=== PATIENT | male | born 1955 | race Hispanic/Latino ===

== ENCOUNTER 2023-05-26 12:49 | Inpatient (IN) | payer OTHER, MEDICARE ==
[2023-05-26] VITALS (46 sets, daily range): BP systolic 115–128; BP diastolic 44–54; PULSE 88–93; RESP 22–27; O2SAT 97–99
[~2023-05-26] VITALS: Ht 182.9 cm; Wt 95.7 kg
[2023-05-26 13:57] LABS: ABG BASE EXCESS -11.6 mmol/L (-2.0-3.0); ABG HCO3 15.5 mmol/L (21.0-28.0); ABG OXYGEN SATURATION 98.2 % (95.0-99.0); ABG PCO2 39 mmHg (35-48); ABG PH 7.214 (7.35-7.450); CARBON MONOXIDE 0.6; HHb 1.8; PO2, ARTERIAL BG 118.9 mmHg (83.0-108.0); VENT MODE, BG AC-VC (ROOM AIR)
[2023-05-26] MEDS: ARTIFICAL TEARS SOL 15 ML OU SCH (14:00)
[2023-05-26] MEDS ORDERED: HYDRALAZINE 20MG/ML VIAL IV PRN (14:00)
[2023-05-26] MEDS ORDERED: FENTANYL CITRATE PF 0.05 MG/ML 1,000 MCG in 0.9%NACL 100ML 100 ML IV PRN (14:00)
[2023-05-26] MEDS ORDERED: LACTULOSE 20 GM/30 ML UDCUP PO PRN (14:00)
[2023-05-26] MEDS ORDERED: MIDAZOLAM HCL 50 MG in 0.9%NACL 50ML 50 ML IV SCH (14:00)
[2023-05-26] MEDS: SODIUM BICARB 8.4% 50ML SYRING 150 MEQ in DEXTROSE 5%-WATER 1,000 ML IVP SCH (14:00)
[2023-05-26] MEDS ORDERED: ONDANSETRON 4MG INJ IVP PRN (14:00)
[2023-05-26] MEDS ORDERED: VANCOMYCIN PROTOCOL PER PHARMACY IV SCH ×2 (14:00)
[2023-05-26] MEDS ORDERED: ACETAMINOPHEN 650 MG SUPPOSITORY RC PRN (14:00)
[2023-05-26] MEDS ORDERED: NOREPINEPHRIN 4MG/NS 250ML 250 ML IV PRN (14:00)
[2023-05-26] MEDS: CEFEPIME HCL 1 GM VIAL IV SCH (14:08)
[2023-05-26] MEDS: SODIUM BICARB 50MEQ 50ML VIAL IV ONE ×2 (14:08→16:34)
[2023-05-26] MEDS: CHLORHEXIDINE GLUCONATE 15 ML MOUTHWASH MM SCH (14:09)
[2023-05-26] MEDS: METRONIDAZOLE 500MG/100ML BAG 100 ML IVPB SCH (14:10)
[2023-05-26 14:15] LABS: BASOPHILS # (AUTO) 0.05 K/uL (0.00-0.20); BASOPHILS % (AUTO) 0.3 % (0.0-5.0); HEMATOCRIT 48.1 % (42-54); IMMATURE GRANULOCYTE ABSOLUTE 0.31 K/uL (0-1); LYMPHOCYTES # (AUTO) 0.5 K/uL (1.0-4.8); LYMPHOCYTES % (AUTO) 2.5 % (21.0-51.0); MEAN CORPUSCULAR HEMOGLOBIN 30.1 pg (27.0-33.0); MEAN CORPUSCULAR HGB CONC 31.6 g/dL (32.0-36.0); MEAN CORPUSCULAR VOLUME 95.2 fL (79-99); MONOCYTES # (AUTO) 1.9 K/uL (0.1-1.0); MONOCYTES % (AUTO) 10.1 % (3.0-13.0); NEUTROPHILS # (AUTO) 16.4 K/uL (1.8-7.7); NEUTROPHILS % (AUTO) 85.5 % (40.0-77.0); NUCLEATED RED BLOOD CELLS 0.1 % (0.0-0.19); PLATELET COUNT (AUTO) 121 K/uL (130-400); RED BLOOD CELL COUNT(AUTO) 5.05 MIL/uL (4.50-6.20); RED CELL DISTRIBUTION WIDTH 18.1 % (11.0-15.5); WHITE BLOOD COUNT (AUTO) 19.1 K/uL (4.8-10.8)
[2023-05-26] MEDS: VASOPRESSIN 20 UNITS in 0.9%NACL 100ML 99 ML IV PRN (14:30)
[2023-05-26 14:38] LABS: ALBUMIN 2.1 g/dL (3.5-5.0); BILIRUBIN,TOTAL 2.7 mg/dL (0.2-1.0); CREATININE 3.7 mg/dL (0.5-1.5); POTASSIUM 4.4 mmol/L (3.5-5.1); TOTAL PROTEIN, SERUM 6.6 g/dL (6.0-8.3)
[2023-05-26 14:49] LABS: INR 1.77 (0.85-1.15)
[2023-05-26 14:50] LABS: PARTIAL THROMBOPLASTIN TIME 38.7 SEC (26.3-35.5)
[2023-05-26] MEDS: PANTOPRAZOLE 40MG INJ 80 MG in 0.9%NACL 100ML 100 ML IVP SCH (16:00)
[2023-05-26] MEDS: PHENYLEPHRINE HCL 100 MG in 0.9% NACL 250ML 240 ML IV SCH (16:01)
[2023-05-26 16:13] LABS: ABG BASE EXCESS -7.9 mmol/L (-2.0-3.0); ABG HCO3 17.7 mmol/L (21.0-28.0); ABG OXYGEN SATURATION 97.6 % (95.0-99.0); ABG PCO2 37 mmHg (35-48); CARBON MONOXIDE 0.9; HHb 2.4; PO2, ARTERIAL BG 102.2 mmHg (83.0-108.0); VENT MODE, BG AC (ROOM AIR)
[2023-05-26] MEDS: VANCOMYCIN 1.25 GM/250 ML BAG 250 ML IV ONE (16:19)
[2023-05-26] MEDS: 0.9%NACL 50ML IV SCH (16:34)
[2023-05-26] MEDS: CALCIUM GLUC 1GM/10ML VIAL IVPB SCH (16:34)
[2023-05-26] MEDS: INSULIN HUMULIN R 100 UNIT/ML 3ML SQ SCH (16:52)
[2023-05-26] MEDS ORDERED: RENAL DOSE IV PRN (18:00)
[2023-05-26] MEDS: PHYTONADIONE 10 MG in 0.9%NACL 50ML 50 ML IVPB ONE (18:10)
[2023-05-26] MEDS: OCTREOTIDE ACETATE 500 MCG in 0.9%NACL 100ML 97.5 ML IV SCH (18:34)
[2023-05-26 20:05] LABS: ABG BASE EXCESS -4.5 mmol/L (-2.0-3.0); ABG HCO3 20.6 mmol/L (21.0-28.0); ABG OXYGEN SATURATION 96.8 % (95.0-99.0); ABG PCO2 38 mmHg (35-48); ABG PH 7.349 (7.35-7.450); CARBON MONOXIDE 0.7; HHb 3.2; PO2, ARTERIAL BG 92.8 mmHg (83.0-108.0); VENT MODE, BG ACVC (ROOM AIR)
[2023-05-26] MEDS: FENTANYL 1000MCG+NS 100ML 100 ML IV SCH (23:33)
[2023-05-27] VITALS (111 sets, daily range): BP systolic 98–131; BP diastolic 41–68; PULSE 87–139; RESP 25–26; TEMP 101.8; O2SAT 94–97
[2023-05-27] MEDS: MIDAZOLAM 50MG-0.9% NS 50ML 50 ML IV SCH (00:07)
[2023-05-27 00:22] LABS: ABG HCO3 20.5 mmol/L (21.0-28.0); ABG OXYGEN SATURATION 97.2 % (95.0-99.0); ABG PCO2 36 mmHg (35-48); ABG PH 7.374 (7.35-7.450); CARBON MONOXIDE 0.9; HHb 2.8; PO2, ARTERIAL BG 97.9 mmHg (83.0-108.0); VENT MODE, BG ACVC (ROOM AIR)
[2023-05-27 03:43] LABS: ABG HCO3 21.4 mmol/L (21.0-28.0); ABG OXYGEN SATURATION 97.1 % (95.0-99.0); ABG PCO2 37 mmHg (35-48); ABG PH 7.386 (7.35-7.450); CARBON MONOXIDE 0.8; HHb 2.9; VENT MODE, BG ACVC (ROOM AIR)
[2023-05-27 04:35] LABS: BASOPHILS # (AUTO) 0.03 K/uL (0.00-0.20); BASOPHILS % (AUTO) 0.2 % (0.0-5.0); HEMATOCRIT 42.4 % (42-54); IMMATURE GRANULOCYTE ABSOLUTE 0.15 K/uL (0-1); LYMPHOCYTES # (AUTO) 0.7 K/uL (1.0-4.8); LYMPHOCYTES % (AUTO) 4.8 % (21.0-51.0); MEAN CORPUSCULAR HEMOGLOBIN 30.7 pg (27.0-33.0); MEAN CORPUSCULAR HGB CONC 34.2 g/dL (32.0-36.0); MEAN CORPUSCULAR VOLUME 89.6 fL (79-99); MONOCYTES # (AUTO) 1.5 K/uL (0.1-1.0); NEUTROPHILS # (AUTO) 12.9 K/uL (1.8-7.7); NUCLEATED RED BLOOD CELLS 0.1 % (0.0-0.19); PLATELET COUNT (AUTO) 96 K/uL (130-400); RED BLOOD CELL COUNT(AUTO) 4.73 MIL/uL (4.50-6.20); RED CELL DISTRIBUTION WIDTH 17.8 % (11.0-15.5); WHITE BLOOD COUNT (AUTO) 15.4 K/uL (4.8-10.8)
[2023-05-27 05:07] LABS: INR 1.7 (0.85-1.15); PROTHROMBIN TIME 19.3 SEC (9.6-11.6)
[2023-05-27 05:08] LABS: PARTIAL THROMBOPLASTIN TIME 38.2 SEC (26.3-35.5)
[2023-05-27 05:16] LABS: ALBUMIN 1.8 g/dL (3.5-5.0); BILIRUBIN,TOTAL 2.9 mg/dL (0.2-1.0); CREATININE 3.7 mg/dL (0.5-1.5); POTASSIUM 4.1 mmol/L (3.5-5.1); TOTAL PROTEIN, SERUM 5.9 g/dL (6.0-8.3)
[2023-05-27] MEDS ORDERED: AMIODARONE 900MG VIAL 900 MG in DEXTROSE 5%-WATER 200 ML IV PRN (07:00)
[2023-05-27] MEDS ORDERED: AMIODARONE 900MG VIAL 450 MG in DEXTROSE 5%-WATER 250 ML IV PRN (07:00)
[2023-05-27] MEDS ORDERED: AMIODARONE 360MG/200ML D5W(1MG/MIN) IV SCH (07:15)
[2023-05-27 07:29] LABS: ABG BASE EXCESS 0.7 mmol/L (-2.0-3.0); ABG HCO3 26.6 mmol/L (21.0-28.0); ABG OXYGEN SATURATION 97.4 % (95.0-99.0); ABG PCO2 47 mmHg (35-48); ABG PH 7.369 (7.35-7.450); CARBON MONOXIDE 0.7; HHb 2.6; PO2, ARTERIAL BG 103.5 mmHg (83.0-108.0); VENT MODE, BG AC (ROOM AIR)
[2023-05-27] MEDS: AMIODARONE 900MG VIAL 150 MG in DEXTROSE 5%-WATER 100 ML IV PRN (07:32)
[2023-05-27] MEDS: ASPIRIN 81MG CHEW TAB PO SCH (08:30)
[2023-05-27] MEDS ORDERED: ENOXAPARIN SODIUM 40 MG/0.4 ML SYRINGE SQ SCH (09:00)
[2023-05-27] MEDS ORDERED: PANTOPRAZOLE 40 MG/VIAL IVP SCH (09:00)
[2023-05-27] MEDS: CALCIUM GLUC 1GM 1 GM in 0.9%NACL 100ML 100 ML IV SCH (09:11)
[2023-05-27 12:06] LABS: ABG BASE EXCESS 0.5 mmol/L (-2.0-3.0); ABG HCO3 25.4 mmol/L (21.0-28.0); ABG OXYGEN SATURATION 96.4 % (95.0-99.0); ABG PCO2 42 mmHg (35-48); ABG PH 7.399 (7.35-7.450); CARBON MONOXIDE 0.7; HHb 3.6; PO2, ARTERIAL BG 89.5 mmHg (83.0-108.0); VENT MODE, BG AC (ROOM AIR)
[2023-05-27] MEDS: ACETAMINOPHEN 325 MG TAB PO PRN (12:22)
[2023-05-27] MEDS: AMIODARONE 540 MG/D5W 300ML (0.5MG/MIN) IV SCH (13:42)
[2023-05-27] MEDS: NEOMYCIN SULFATE 500 MG TAB PO SCH (14:07)
[2023-05-27] MEDS: ERYTHROMYCIN BASE 500 MG TABLET PO SCH (14:07)
[2023-05-27] MEDS: VANCOMYCIN 750MG VIAL IVPB SCH (16:12)
[2023-05-27] MEDS ORDERED: COMPOUND IV REFRIGERATED 1 EACH IVSOLN MISC PRN (18:00)
[2023-05-28] VITALS (156 sets, daily range): BP systolic 90–125; BP diastolic 39–66; PULSE 87–123; RESP 10–27; O2SAT 26–98
[2023-05-28 04:06] LABS: BASOPHILS # (AUTO) 0.02 K/uL (0.00-0.20); BASOPHILS % (AUTO) 0.2 % (0.0-5.0); EOSINOPHILS # (AUTO) 0.03 K/uL (0.00-0.70); EOSINOPHILS % (AUTO) 0.2 % (0.0-8.0); HEMATOCRIT 43.8 % (42-54); IMMATURE GRANULOCYTE ABSOLUTE 0.16 K/uL (0-1); LYMPHOCYTES % (AUTO) 7.8 % (21.0-51.0); MEAN CORPUSCULAR HEMOGLOBIN 31.2 pg (27.0-33.0); MEAN CORPUSCULAR HGB CONC 33.6 g/dL (32.0-36.0); MONOCYTES # (AUTO) 0.9 K/uL (0.1-1.0); NEUTROPHILS # (AUTO) 10.9 K/uL (1.8-7.7); NEUTROPHILS % (AUTO) 83.6 % (40.0-77.0); PLATELET COUNT (AUTO) 88 K/uL (130-400); RED BLOOD CELL COUNT(AUTO) 4.71 MIL/uL (4.50-6.20); RED CELL DISTRIBUTION WIDTH 18.3 % (11.0-15.5); WHITE BLOOD COUNT (AUTO) 13.1 K/uL (4.8-10.8)
[2023-05-28 04:33] LABS: ALBUMIN 1.6 g/dL (3.5-5.0); BILIRUBIN,TOTAL 4.2 mg/dL (0.2-1.0); CREATININE 3.8 mg/dL (0.5-1.5); POTASSIUM 4.4 mmol/L (3.5-5.1); TOTAL PROTEIN, SERUM 5.8 g/dL (6.0-8.3)
[2023-05-28 08:14] LABS: ABG BASE EXCESS -1.6 mmol/L (-2.0-3.0); ABG HCO3 23.8 mmol/L (21.0-28.0); ABG OXYGEN SATURATION 94.9 % (95.0-99.0); ABG PCO2 43 mmHg (35-48); ABG PH 7.363 (7.35-7.450); CARBON MONOXIDE 0.9; PO2, ARTERIAL BG 80.8 mmHg (83.0-108.0); VENT MODE, BG AC (ROOM AIR)
[2023-05-28] MEDS: HYDROCORTISONE SOD SUCCINATE 100 MG/2 ML VIAL IM ONE (09:28)
[2023-05-28] MEDS: HYDROCORTISONE SOD SUCCINATE 100 MG/2 ML VIAL IV SCH (15:57)
[2023-05-28 16:50] LABS: ABG BASE EXCESS -3.3 mmol/L (-2.0-3.0); ABG HCO3 21.6 mmol/L (21.0-28.0); ABG OXYGEN SATURATION 94.1 % (95.0-99.0); ABG PCO2 39 mmHg (35-48); ABG PH 7.365 (7.35-7.450); DEVICE COMMENT RR ISAAC RN; PO2, ARTERIAL BG 72.3 mmHg (83.0-108.0); VENT MODE, BG AC (ROOM AIR)
[2023-05-28] MEDS: PANTOPRAZOLE 40 MG/VIAL IVP SCH (20:42)
[2023-05-29] VITALS (158 sets, daily range): BP systolic 87–114; BP diastolic 34–62; PULSE 64–121; RESP 16–23; O2SAT 90–100
[2023-05-29] MEDS: INSULIN HUMULIN R 100 UNIT/ML 3ML SQ SCH
[2023-05-29 04:19] LABS: ABG BASE EXCESS -3.8 mmol/L (-2.0-3.0); ABG HCO3 22.2 mmol/L (21.0-28.0); ABG OXYGEN SATURATION 93.1 % (95.0-99.0); ABG PCO2 43 mmHg (35-48); ABG PH 7.327 (7.35-7.450); CARBON MONOXIDE 0.8; HHb 6.8; PO2, ARTERIAL BG 71.5 mmHg (83.0-108.0); VENT MODE, BG AC (ROOM AIR)
[2023-05-29 05:00] LABS: BASOPHILS # (AUTO) 0.03 K/uL (0.00-0.20); BASOPHILS % (AUTO) 0.2 % (0.0-5.0); EOSINOPHILS # (AUTO) 0.01 K/uL (0.00-0.70); EOSINOPHILS % (AUTO) 0.1 % (0.0-8.0); HEMATOCRIT 46.8 % (42-54); LYMPHOCYTES # (AUTO) 0.5 K/uL (1.0-4.8); LYMPHOCYTES % (AUTO) 3.4 % (21.0-51.0); MEAN CORPUSCULAR HGB CONC 32.9 g/dL (32.0-36.0); MEAN CORPUSCULAR VOLUME 94.2 fL (79-99); MONOCYTES % (AUTO) 6.4 % (3.0-13.0); NEUTROPHILS # (AUTO) 13.9 K/uL (1.8-7.7); NEUTROPHILS % (AUTO) 89.3 % (40.0-77.0); PLATELET COUNT (AUTO) 95 K/uL (130-400); RED BLOOD CELL COUNT(AUTO) 4.97 MIL/uL (4.50-6.20); WHITE BLOOD COUNT (AUTO) 15.5 K/uL (4.8-10.8)
[2023-05-29 05:30] LABS: ALBUMIN 1.8 g/dL (3.5-5.0); BILIRUBIN,TOTAL 4.9 mg/dL (0.2-1.0); CREATININE 4.3 mg/dL (0.5-1.5); POTASSIUM 5.2 mmol/L (3.5-5.1); TOTAL PROTEIN, SERUM 6.5 g/dL (6.0-8.3)
[2023-05-29] MEDS: EPINEPHRINE PF 1MG (1:1,000) 10 MG in 0.9% NACL 250ML 250 ML IV SCH (11:55)
[2023-05-29] MEDS: NA ZIRCON CYCLOSIL(LOKELMA 10GM) PO ONE (20:06)
[2023-05-29] MEDS ORDERED: NA ZIRCON CYCLOSIL(LOKELMA 10GM) PO PRN (21:00)
[2023-05-30] VITALS (85 sets, daily range): BP systolic 74–123; BP diastolic 34–54; PULSE 66–110; RESP 11–26; O2SAT 90–95
[2023-05-30 04:20] LABS: BASOPHILS # (AUTO) 0.02 K/uL (0.00-0.20); BASOPHILS % (AUTO) 0.1 % (0.0-5.0); HEMATOCRIT 45.8 % (42-54); LYMPHOCYTES # (AUTO) 0.6 K/uL (1.0-4.8); LYMPHOCYTES % (AUTO) 3.7 % (21.0-51.0); MEAN CORPUSCULAR HEMOGLOBIN 31.1 pg (27.0-33.0); MEAN CORPUSCULAR HGB CONC 33.6 g/dL (32.0-36.0); MEAN CORPUSCULAR VOLUME 92.5 fL (79-99); MONOCYTES # (AUTO) 1.3 K/uL (0.1-1.0); MONOCYTES % (AUTO) 8.5 % (3.0-13.0); NEUTROPHILS # (AUTO) 13.2 K/uL (1.8-7.7); NUCLEATED RED BLOOD CELLS 0.7 % (0.0-0.19); PLATELET COUNT (AUTO) 61 K/uL (130-400); RED BLOOD CELL COUNT(AUTO) 4.95 MIL/uL (4.50-6.20); RED CELL DISTRIBUTION WIDTH 19.3 % (11.0-15.5); WHITE BLOOD COUNT (AUTO) 15.1 K/uL (4.8-10.8)
[2023-05-30 04:49] LABS: ALBUMIN 1.7 g/dL (3.5-5.0); BILIRUBIN,TOTAL 4.8 mg/dL (0.2-1.0); CREATININE 5.4 mg/dL (0.5-1.5); POTASSIUM 5.4 mmol/L (3.5-5.1); TOTAL PROTEIN, SERUM 6.5 g/dL (6.0-8.3)
[2023-05-30] MEDS: NA ZIRCON CYCLOSIL(LOKELMA 10GM) PO PRN (10:12)
[2023-05-30] MEDS: PHARMACY COMMUNICATION MISC SCH (15:30)
[2023-05-30] MEDS: DAPTOMYCIN IV SCH (17:53)
[2023-05-30] MEDS: [UNRECOGNIZED DRUG - OTHER] IV SCH (17:53)
[2023-05-30] MEDS: MORPHINE 2 MG SYG IV PRN (20:44)
[2023-05-30] MEDS: GLYCOPYRROLATE 0.2 MG/ML 5 ML VIAL IVP PRN (20:44)
[2023-05-30] MEDS: LORAZEPAM 2 MG/ML 1 ML VIAL IVP PRN (21:07)
[2023-05-31] VITALS: BP 54/27; PULSE 76; RESP 23
[2023-05-31 04:00] VITALS: BP 56/27; PULSE 77; RESP 67
[2023-05-31 07:10] VITALS: BP 57/28; PULSE 75; RESP 16
[2023-05-31 07:25] VITALS: BP 60/30; PULSE 91; RESP 14
[2023-05-31 07:40] VITALS: BP 59/24; PULSE 88; RESP 11
[2023-05-31] MEDS: HYDROMORPHONE 0.5 MG SYG (0.5MG/0.5ML) IVP PRN (07:47)
[2023-05-31 07:55] VITALS: BP 63/28; PULSE 76; RESP 9
== END 2023-05-31 12:10 | DRG 870 ==
LOC: 2CH 13:00 → 3BH 05-31 09:20
PROVIDERS: ADMIT Internal Medicine Pulmonary Disease; ATTEND Internal Medicine Pulmonary Disease
PROC: 0BH17EZ Insertion of Endotracheal Airway into Trachea, Via Natural or Artificial Opening (ICD-10-PCS; principal; 2023-05-25)
PROC: 5A1955Z Respiratory Ventilation, Greater than 96 Consecutive Hours (ICD-10-PCS; 2023-05-25)
DX: A41.81 Sepsis due to Enterococcus (principal); E43 Unspecified severe protein-calorie malnutrition; R65.21 Severe sepsis with septic shock; I50.33 Acute on chronic diastolic (congestive) heart failure; I21.A1 Myocardial infarction type 2; I33.0 Acute and subacute infective endocarditis; J18.9 Pneumonia, unspecified organism; J96.21 Acute and chronic respiratory failure with hypoxia; K72.00 Acute and subacute hepatic failure without coma; D68.9 Coagulation defect, unspecified; E87.20 Acidosis, unspecified; I13.0 Hypertensive heart and chronic kidney disease with heart failure and stage 1 through stage 4 chronic kidney disease, or unspecified chronic kidney disease; J44.0 Chronic obstructive pulmonary disease with (acute) lower respiratory infection; N17.9 Acute kidney failure, unspecified; R57.0 Cardiogenic shock; I08.0 Rheumatic disorders of both mitral and aortic valves; I27.20 Pulmonary hypertension, unspecified; D69.6 Thrombocytopenia, unspecified; E11.22 Type 2 diabetes mellitus with diabetic chronic kidney disease; E83.51 Hypocalcemia; I25.10 Atherosclerotic heart disease of native coronary artery without angina pectoris; I48.91 Unspecified atrial fibrillation; N18.9 Chronic kidney disease, unspecified; Z66 Do not resuscitate; Z79.899 Other long term (current) drug therapy; Z51.5 Encounter for palliative care; Z68.28 Body mass index [BMI] 28.0-28.9, adult
CPT/HCPCS: 36415; 36600; 71045; 80053; 80202; 82435; 82803; 82947; 82948; 83605; 83735; 84132; 84145; 84295; 85018; 85025; 85610; 85730; 86611; 86622; 86638; 87040; 93005; 94002; 94003; C9113; G0378; J0171; J0282; J0610; J0692; J0878; J1170; J1720; J1815; J2060; J2270; J2354; J2371; J3010; J3430; J3490; J7050; J7060; J7070; 3370; J3370